=== PATIENT | male | born 1965 | race African-American/Black ===

== ENCOUNTER 2021-05-14 10:37 | Outpatient (REF) | payer OTHER, SELFPAY ==
[2021-05-14 10:41] LABS: MANUAL DIFF FLAG NO
[2021-05-14 10:52] LABS: Basophils Percent Auto 0.5 % (0-2); Eosinophils Absolute Auto 0.1 X10*3/uL (0.0-0.4); Eosinophils Percent Auto 1.1 % (0-4); Hematocrit 43.7 % (42-52); Hemoglobin 14.3 g/dl (14.0-18.0); Imm Gran Abs Auto 0.01 X10*3/uL (0.00-0.03); Imm Gran Pct Auto 0.2 % (0.0-0.4); Lymphocytes Absolute Auto 2.9 X10*3/uL (1.2-4.9); Lymphocytes Percent Auto 51.6 % (20-40); Mean Corpuscular HGB Conc 32.7 g/dl (31.0-36.0); Mean Corpuscular Hemoglobin 28.3 pg (27.0-33.0); Mean Corpuscular Volume 86.4 fL (80-98); Mean Platelet Volume 10.5 fL (9.4-12.4); Monocytes Absolute Auto 0.4 X10*3/uL (0.1-1.2); Monocytes Percent Auto 6.5 % (2-11); Neutrophils Absolute Auto 2.3 X10*3/uL (2.0-8.3); Neutrophils Percent Auto 40.1 % (45-73); Platelet Count 241 X10*3/uL (160-400); Red Blood Count 5.06 X10*6/uL (4.60-5.80); Red Cell Distribution Width 13.7 % (11.0-16.0); White Blood Count 5.7 X10*3/uL (4.8-10.8)
[2021-05-14 11:04] LABS: Estimated Average Glucose 117 mg/dL; Glucose Urine UA NEG (NEG); Hemoglobin A1c % 5.7 %; Leukocyte Esterase Urine NEG (NEG); Nitrite Urine NEG (NEG); Specific Gravity - Urine >= 1.030 (1.005-1.025); Urine Blood NEG (NEG); Urine Ketones NEG (NEG); Urine Protein NEG (NEG-TRACE)
[2021-05-14 11:07] LABS: Alanine Aminotransferase 25 U/L (0-40); Albumin Level 3.9 g/dL (3.5-5.0); Alkaline Phosphatase 76 U/L (39-117); Anion Gap 14 (12-20); Aspartate Amino Transferase 16 U/L (5-37); Bilirubin Total 0.2 mg/dL (0.0-1.0); Blood Urea Nitrogen 18 mg/dL (9-16); Carbon Dioxide 28 mmol/L (22-29); Chloride 108 mmol/L (96-108); Cholesterol 145 mg/dL; Estimated Glomerular Filt Rate 60; Glucose Fasting 102 mg/dL (60-99); HDL Cholesterol 48 mg/dL; LDL Cholesterol Calculated 80 mg/dl; Potassium 3.9 mmol/L (3.3-5.1); Sodium 146 mmol/L (135-145); Total Protein 6.9 g/dL (6.5-8.0); Triglycerides 88 mg/dL
[2021-05-14 11:08] LABS: Appearance Urine CLEAR; Color Urine YELLOW
[2021-05-14 11:24] LABS: TSH reflex Free T4 1.89 uIU/mL (0.32-4.0)
[2021-05-14 11:31] LABS: PSA,Total (Free>4and<10) 1.81 ng/mL (0.00-4.00)
[2021-05-14 11:32] LABS: Creatinine Urine 222.01 mg/dL; Microalbum/Creatinine Ratio Ur 2.7 ug/mg cr
== END 2021-05-14 10:38 | disposition home or self-care (01) ==
LOC: HO.LNP 10:37
PROVIDERS: Visit Provider Internal Medicine
DX: Z00.00 Encounter for general adult medical examination without abnormal findings (principal); I10 Essential (primary) hypertension; E04.1 Nontoxic single thyroid nodule; E11.9 Type 2 diabetes mellitus without complications; D72.820 Lymphocytosis (symptomatic); Z12.5 Encounter for screening for malignant neoplasm of prostate
CPT/HCPCS: 80053; 80061; 81003; 82043; 83036; 84153; 84443; 85025

== ENCOUNTER 2021-05-29 08:14 | Outpatient (REF) | payer OTHER, SELFPAY ==
--- NOTE | ~2021-05-29 | US_ITS ---
EXAMINATION: US THYROID CLINICAL INFORMATION: Thyroid nodules. COMPARISON: Ultrasound-guided thyroid biopsy 12/06/2019. Thyroid ultrasound 11/01/2019 and 12/23/2013. TECHNIQUE: Linear transducer grayscale and color Doppler examination with attention to the region of the thyroid. FINDINGS: SIZE: Measurements of the thyroid lobes and nodules are given in sagittal, anteroposterior and transverse dimensions respectively. Right Thyroid Lobe: 5.9 x 1.9 x 1.7 cm, volume 10.0 mL. Previously 5.7 x 2.1 x 2.0 cm, volume 12.9 mL. Parenchyma: The gland echotexture is heterogeneous. Thyroid vascularity is increased. Left Thyroid Lobe: 5.5 x 2.7 x 2.2 cm, volume 17.0 mL. Previously 5.6 x 2.0 x 1.8 cm, volume 10.7 mL. Parenchyma: The gland echotexture is heterogeneous. Thyroid vascularity is increased. Isthmus: 0.6 cm in maximum AP dimension. Previously 0.5 cm. Estimated total number of nodules greater than or equal to 1 cm: 5. Welder Helper nodules are described as follows: 1. Location: Right mid pole. Size: 2.8 x 1.4 x 2.3 cm, volume 4.7 mL. Previously: 2.5 x 0.9 x 2.1 cm, volume 2.5 mL. Nodule characteristics: Composition: Solid/almost completely solid (2). Echogenicity: Hypoechoic (2). Shape: Not taller than wide (0). Margins: Smooth (0). Echogenic Foci: Macrocalcifications (1). Punctate echogenic foci (3). ACR TI-RADS total points: 8 Previous: Not applicable ACR TI-RADS category: 5 Previous: Not applicable Significant change in size (>/= 20% in 2 dimensions and minimal increase of 2 mm or 50% or greater increase in volume): Yes Change in features: No Change in ACR TI-RADS risk category: Not applicable 2. Location: Right mid pole. Size: 1.2 x 0.6 x 1.1 cm, volume 0.44 mL. Previously: 1.2 x 0.8 x 1.0 cm, volume 0.46 mL. Nodule characteristics: Composition: Solid/almost completely solid (2). Echogenicity: Hypoechoic (2). Shape: Not taller than wide (0). Margins: Smooth (0). Echogenic Foci: None (0). ACR TI-RADS total points: 4 Previous: Not applicable ACR TI-RADS category: 4 Previous: Not applicable Significant change in size (>/= 20% in 2 dimensions and minimal increase of 2 mm or 50% or greater increase in volume): Change in features: Change in ACR TI-RADS risk category: Not applicable 3. Location: Left upper pole. Size: 1.1 x 0.9 x 1.2 cm, volume 0.62 mL. Previously: 1.1 x 0.8 x 0.6 cm, volume 0.31 mL. Nodule characteristics: Composition: Solid/almost completely solid (2). Echogenicity: Hypoechoic (2). Shape: Not taller than wide (0). Margins: Smooth (0). Echogenic Foci: None (0). ACR TI-RADS total points: 4 Previous: Not applicable ACR TI-RADS category: 4 Previous: Not applicable Significant change in size (>/= 20% in 2 dimensions and minimal increase of 2 mm or 50% or greater increase in volume): Change in features: Change in ACR TI-RADS risk category: Not applicable 4. Location: Left mid pole. Size: 2.0 x 1.4 x 1.4 cm, volume 2.0 mL. Previously: 1.1 x 1.1 x 0.8 cm, volume 0.52 mL. Nodule characteristics: Composition: Cystic(0). ACR TI-RADS total points: 0 Previous: Not applicable ACR TI-RADS category: 1 Previous: Not applicable Significant change in size (>/= 20% in 2 dimensions and minimal increase of 2 mm or 50% or greater increase in volume): Yes Change in features: No Change in ACR TI-RADS risk category: Not applicable 5. Location: Left lower pole. Size: 1.0 x 0.3 x 0.5 cm, volume 0.08 mL. Previously: 0.6 x 0.5 x 0.7 cm, volume 0.11 mL. Nodule characteristics: Composition: Spongiform (0). ACR TI-RADS total points: 0 Previous: Not applicable ACR TI-RADS category: 1 Previous: Not applicable Significant change in size (>/= 20% in 2 dimensions and minimal increase of 2 mm or 50% or greater increase in volume): No Change in features: No Change in ACR TI-RADS risk category: Not applicable NODES: No lymphadenopathy is seen in the tissue surrounding the thyroid gland. US/US thyroid IMPRESSION: Increase in size of mid right lobe nodule measuring 2.8 cm in maximum dimension which had a nondiagnostic biopsy on December 06, 2019. It falls in the TI-RADS 5 category with greater than 7 points. Recommend repeat attempt at biopsy. Consideration of having a zipper lining folder present to ensure adequate sampling. ACR TI-RADS RECOMMENDATION REFERENCE: Ultrasound-guided fine-needle aspiration, followup ultrasound, no further follow up. * TR1 (0 point) and TR 2 (2 points): No FNA or follow up * TR3 (3 points): FNA if more than or equal to 2.5 cm in maximum dimension, followup ultrasound in 1, 3 and 5 years if 1.5 to 2.4 cm in maximum dimension. * TR4 (4-6 points): FNA if more than or equal to 1.5 cm in maximum dimension, followup ultrasound in 1, 2, 3 and 5 years if 1 to 1.4 cm in maximum dimension. * TR5 (more than or equal to 7 points): FNA if more than or equal to 1 cm in maximum dimension, followup ultrasound every year for 5 years if 0.5 to 0.9 cm in maximum dimension. * TR3, TR4 or TR5 nodules that are below the size threshold for follow up receive no follow up.
== END 2021-05-29 08:15 | disposition home or self-care (01) ==
LOC: HO.HMGCX 08:14
PROVIDERS: PCP Internal Medicine; Visit Provider Internal Medicine
DX: E04.1 Nontoxic single thyroid nodule (principal)
CPT/HCPCS: 76536

== ENCOUNTER → 2021-12-11 15:35 | Outpatient (BNVA) | payer OTHER, SELFPAY | PROVIDERS: PCP Internal Medicine; Visit Provider Surgery | DX: L72.11 Pilar cyst (principal) | CPT/HCPCS: 99202 ==

== ENCOUNTER 2022-01-10 07:38 | Outpatient (REF) | payer OTHER, SELFPAY ==
[2022-01-10 07:51] VITALS: BP 139/77; PULSE 72; RESP 16; TEMP 36.4; O2SAT 97; BMI 38.0
--- NOTE | 2022-01-10 08:26 | P.OP_ITS ---
Operative Note Operative Note Date of Service: 01/10/22 Narrative: Preoperative diagnosis: Pilar cyst posterior scalp Postoperative diagnosis: Same Procedure: Excision of Pilar cyst posterior scalp Surgeon: Ezio Zaragoza MD Registered Client Associate: None Anesthesia: Local Indications for procedure: 56-year-old male patient with an enlarging Pilar cyst in the posterior scalp measuring 2 cm in diameter. Operative findings: 2 cm Pilar cyst posterior scalp Specimen: Pilar cyst Estimated blood loss: 10 mL Complications: None Procedure details: Patient was brought to the minor surgery suite and placed in a prone position. Site of surgery was confirmed by the patient in the posterior scalp. After assuring informed consent skin was prepped with Betadine and draped in a sterile fashion. Local anesthesia consisting of 1% lidocaine was infiltrated circumferentially around the lesion. Elliptical incision oriented transversely was then created around the cyst. The incision was carried out through subcutaneous tissue. Electrocautery was used to assist with hemostasis. Dissection was continued around the cyst wall in the lesion excised. Skin was then closed using interrupted 4-0 nylon sutures. Dressings included 2 x 2 gauze and Tegaderm. The patient tolerated the procedure well. He was discharged to home in stable condition.
== END 2022-01-10 07:39 | disposition home or self-care (01) ==
LOC: HO.MS 07:38
PROVIDERS: PCP Internal Medicine; Visit Provider Surgery
PROC: (CPT 11422; principal; 2022-01-10 08:00)
DX: L72.11 Pilar cyst (principal)
CPT/HCPCS: 11422; 88304; 88305

== ENCOUNTER → 2022-01-17 08:34 | Outpatient (BNVA) | payer OTHER, SELFPAY | PROVIDERS: PCP Internal Medicine; Referring Provider Internal Medicine; Visit Provider Surgery | DX: Z13.89 Encounter for screening for other disorder (principal) ==

== ENCOUNTER 2022-05-23 10:43 | Outpatient (REF) | payer OTHER, SELFPAY ==
[2022-05-23 10:47] LABS: MANUAL DIFF FLAG NO
[2022-05-23 11:09] LABS: Basophils Percent Auto 0.6 % (0-2); Eosinophils Absolute Auto 0.1 X10*3/uL (0.0-0.4); Eosinophils Percent Auto 1.2 % (0-4); Hematocrit 42.8 % (42.0-52.0); Hemoglobin 14.3 g/dl (14.0-18.0); Imm Gran Abs Auto 0.01 X10*3/uL (0.00-0.03); Imm Gran Pct Auto 0.2 % (0.0-0.4); Lymphocytes Absolute Auto 2.4 X10*3/uL (1.2-4.9); Mean Corpuscular HGB Conc 33.4 g/dl (31.0-36.0); Mean Corpuscular Volume 83.8 fL (80.0-98.0); Mean Platelet Volume 10.9 fL (9.4-12.4); Monocytes Absolute Auto 0.4 X10*3/uL (0.1-1.2); Monocytes Percent Auto 8.6 % (2-11); Neutrophils Absolute Auto 2.1 x10*3/uL (2.0-8.3); Neutrophils Percent Auto 41.4 % (45-73); Platelet Count 240 X10*3/uL (160-400); Red Blood Count 5.11 X10*6/uL (4.60-5.80); Red Cell Distribution Width 13.4 % (11.0-16.0)
[2022-05-23 11:17] LABS: Estimated Average Glucose 111 mg/dL; Hemoglobin A1c % 5.5 %
[2022-05-23 11:25] LABS: Alanine Aminotransferase 26 U/L (0-40); Albumin Level 3.9 g/dL (3.5-5.0); Alkaline Phosphatase 85 U/L (39-117); Anion Gap 15 (12-20); Aspartate Amino Transferase 21 U/L (5-37); Bilirubin Total 0.5 mg/dL (0.0-1.0); Blood Urea Nitrogen 11 mg/dL (9-16); Calcium 8.9 mg/dL (8.4-10.2); Carbon Dioxide 28 mmol/L (22-29); Chloride 105 mmol/L (96-108); Cholesterol 140 mg/dL; Estimated Glomerular Filt Rate > 60; Glucose Fasting 90 mg/dL (60-99); HDL Cholesterol 54 mg/dL; LDL Cholesterol Calculated 74 mg/dl; Potassium 3.6 mmol/L (3.3-5.1); Sodium 144 mmol/L (135-145); Triglycerides 64 mg/dL
[2022-05-23 11:34] LABS: Appearance Urine Clear; Color Urine Yellow; Glucose Urine UA Negative (Negative); Leukocyte Esterase Urine Negative (Negative); Nitrite Urine Negative (Negative); Urine Blood Negative (Negative); Urine Ketones Trace mg/dL (Negative); Urine Protein Negative (Neg-Trace)
[2022-05-23 11:39] LABS: PSA,Total (Free>4and<10) 1.55 ng/mL (0.00-4.00); TSH reflex Free T4 1.13 uIU/mL (0.32-4.0)
[2022-05-23 11:42] LABS: Bacteria Urine None Seen (None Seen); Hyaline Casts Urine 0-2 /LPF (0-2); RBC Urine 0-2 /HPF (0-2); Squamous Epithelial Cell Urine 0-2 /HPF (0-2); WBC Urine 0-5 /HPF (0-5)
[2022-05-23 11:47] LABS: Microalbum/Creatinine Ratio Ur 3.7 ug/mg cr
== END 2022-05-23 10:44 | disposition home or self-care (01) ==
LOC: HO.LNP 10:43
PROVIDERS: Visit Provider Internal Medicine
DX: Z00.00 Encounter for general adult medical examination without abnormal findings (principal); I10 Essential (primary) hypertension; E04.1 Nontoxic single thyroid nodule; E11.9 Type 2 diabetes mellitus without complications; D72.820 Lymphocytosis (symptomatic); Z12.5 Encounter for screening for malignant neoplasm of prostate
CPT/HCPCS: 80053; 80061; 81001; 82043; 83036; 84153; 84443; 85025

== ENCOUNTER → 2022-12-26 14:33 | Outpatient (BNVA) | payer OTHER, SELFPAY | PROVIDERS: PCP Internal Medicine; Visit Provider Surgery | DX: Z13.89 Encounter for screening for other disorder (principal) ==

== ENCOUNTER 2023-01-16 12:31 | Outpatient (REF) | payer OTHER, SELFPAY ==
[2023-01-16 12:41] VITALS: BP 174/83; PULSE 70; RESP 16; TEMP 36.1; O2SAT 97; BMI 38.5
[2023-01-16 13:27] VITALS: BP 163/77; PULSE 62; RESP 16; O2SAT 96
--- NOTE | 2023-01-16 13:37 | P.OP_ITS ---
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 Operative findings: Pilar cyst completely excised posterior scalp Specimen: Pilar cyst posterior scalp Estimated blood loss: 5 mL Complications: None Procedure details: Patient was brought to the minor surgery suite placed in a prone position. The site of surgery was confirmed by the patient in the posterior scalp. After assuring informed consent the skin was prepped with Betadine and draped in a sterile fashion. Elliptical incision to include the previous incision was created with a 15 blade. This was then continued into the subcutaneous tissue and around the cyst wall. Combination of sharp dissection and blunt dissection was used to dissect the cyst from the surrounding subcutaneous tissue. There was extensive scar tissue from the previous excision which was incised with the scissors. The specimen was removed and sent to pathology for further examination. Light pressure was held to maintain hemostasis. Dermis was then reapproximated using interrupted 3-0 Polysorb sutures. Skin was then closed using interrupted 3-0 Prolene sutures. Bacitracin and a sterile bandage was then applied. The patient tolerated the procedure well. He was discharged to home in stable condition.
== END 2023-01-16 12:32 | disposition home or self-care (01) ==
LOC: HO.MS 12:31
PROVIDERS: PCP Internal Medicine; Visit Provider Surgery
PROC: (CPT 11422; principal; 2023-01-16 13:00)
DX: L72.11 Pilar cyst (principal)
CPT/HCPCS: 11422; 88304

== ENCOUNTER → 2023-01-24 11:29 | Outpatient (BNVA) | payer OTHER, SELFPAY | PROVIDERS: PCP Internal Medicine; Visit Provider Surgery | DX: Z13.89 Encounter for screening for other disorder (principal) ==

== ENCOUNTER 2023-06-05 10:56 | Outpatient (REF) | payer OTHER, SELFPAY ==
[2023-06-05 11:04] LABS: MANUAL DIFF FLAG NO
[2023-06-05 11:20] LABS: Basophils Percent Auto 0.7 % (0-2); Eosinophils Absolute Auto 0.1 X10*3/uL (0.0-0.4); Hematocrit 43.1 % (42.0-52.0); Hemoglobin 13.9 g/dl (14.0-18.0); Imm Gran Abs Auto 0.01 X10*3/uL (0.00-0.03); Imm Gran Pct Auto 0.2 % (0.0-0.4); Lymphocytes Absolute Auto 2.7 X10*3/uL (1.2-4.9); Lymphocytes Percent Auto 45.7 % (20-40); Mean Corpuscular HGB Conc 32.3 g/dl (31.0-36.0); Mean Corpuscular Hemoglobin 27.9 pg (27.0-33.0); Mean Corpuscular Volume 86.4 fL (80.0-98.0); Mean Platelet Volume 11.3 fL (9.4-12.4); Monocytes Absolute Auto 0.5 X10*3/uL (0.1-1.2); Monocytes Percent Auto 9.3 % (2-11); Neutrophils Absolute Auto 2.5 x10*3/uL (2.0-8.3); Neutrophils Percent Auto 43.1 % (45-73); Platelet Count 224 X10*3/uL (160-400); Red Blood Count 4.99 X10*6/uL (4.60-5.80); Red Cell Distribution Width 13.9 % (11.0-16.0); White Blood Count 5.8 X10*3/uL (4.8-10.8)
[2023-06-05 11:21] LABS: Appearance Urine Clear; Color Urine Yellow; Glucose Urine UA Negative (Negative); Leukocyte Esterase Urine Negative (Negative); Nitrite Urine Negative (Negative); PH 6.5 (5.0-9.0); Urine Blood Negative (Negative); Urine Ketones Negative (Negative); Urine Protein Negative (Neg-Trace)
[2023-06-05 11:27] LABS: Bacteria Urine None Seen (None Seen); Hyaline Casts Urine 0-2 /LPF (0-2); RBC Urine 0-2 /HPF (0-2); Squamous Epithelial Cell Urine 0-2 /HPF (0-2); WBC Urine 0-5 /HPF (0-5)
[2023-06-05 11:29] LABS: Alanine Aminotransferase 29 U/L (0-40); Alkaline Phosphatase 86 U/L (39-117); Anion Gap 15 (12-20); Aspartate Amino Transferase 23 U/L (5-37); Bilirubin Total 0.3 mg/dL (0.0-1.0); Blood Urea Nitrogen 18 mg/dL (9-16); Calcium 9.6 mg/dL (8.4-10.2); Carbon Dioxide 26 mmol/L (22-29); Chloride 112 mmol/L (96-108); Cholesterol 150 mg/dL (<200); Estimated Glomerular Filt Rate > 60; Glucose Fasting 102 mg/dL (60-99); HDL Cholesterol 59 mg/dL (>40); LDL Cholesterol Calculated 75 mg/dL (<100); Sodium 149 mmol/L (135-145); Total Protein 7.5 g/dL (6.5-8.0); Triglycerides 83 mg/dL (<150)
[2023-06-05 11:48] LABS: PSA,Total (Free>4and<10) 1.91 ng/mL (0.00-4.00)
[2023-06-05 11:58] LABS: Estimated Average Glucose 111 mg/dL; Hemoglobin A1c % 5.5 % (<6.0)
[2023-06-05 12:19] LABS: Creatinine Urine 125.63 mg/dL; Microalbumin Urine < 5.0 mg/L
== END 2023-06-05 10:57 | disposition home or self-care (01) ==
LOC: HO.LNP 10:56
PROVIDERS: Visit Provider Internal Medicine
DX: Z00.00 Encounter for general adult medical examination without abnormal findings (principal); I10 Essential (primary) hypertension; E11.9 Type 2 diabetes mellitus without complications; D72.820 Lymphocytosis (symptomatic); Z12.5 Encounter for screening for malignant neoplasm of prostate
CPT/HCPCS: 80053; 80061; 81001; 82043; 82570; 83036; 84153; 85025

== ENCOUNTER 2024-06-07 11:06 | Outpatient (REF) | payer OTHER, SELFPAY ==
[2024-06-07 11:09] LABS: MANUAL DIFF FLAG NO
[2024-06-07 11:18] LABS: Basophils Absolute Auto 0.1 X10*3/uL (0.0-0.2); Basophils Percent Auto 0.9 % (0-2); Eosinophils Absolute Auto 0.1 X10*3/uL (0.0-0.4); Eosinophils Percent Auto 1.7 % (0-4); Hematocrit 45.2 % (42.0-52.0); Hemoglobin 14.8 g/dl (14.0-18.0); Imm Gran Abs Auto 0.01 X10*3/uL (0.00-0.03); Imm Gran Pct Auto 0.2 % (0.0-0.4); Lymphocytes Absolute Auto 2.5 X10*3/uL (1.2-4.9); Lymphocytes Percent Auto 46.6 % (20-40); Mean Corpuscular HGB Conc 32.7 g/dl (31.0-36.0); Mean Corpuscular Hemoglobin 28.5 pg (27.0-33.0); Mean Corpuscular Volume 86.9 fL (80.0-98.0); Monocytes Absolute Auto 0.4 X10*3/uL (0.1-1.2); Monocytes Percent Auto 7.9 % (2-11); Neutrophils Absolute Auto 2.3 x10*3/uL (2.0-8.3); Neutrophils Percent Auto 42.7 % (45-73); Platelet Count 224 X10*3/uL (160-400); Red Cell Distribution Width 13.4 % (11.0-16.0); White Blood Count 5.5 X10*3/uL (4.8-10.8)
[2024-06-07 11:24] LABS: Appearance Urine Clear; Color Urine Yellow; Glucose Urine UA Negative (Negative); Leukocyte Esterase Urine Negative (Negative); Nitrite Urine Negative (Negative); Urine Blood Negative (Negative); Urine Ketones Negative (Negative); Urine Protein Negative (Neg-Trace)
[2024-06-07 11:28] LABS: Bacteria Urine None Seen (None Seen); Hyaline Casts Urine 0-2 /LPF (0-2); RBC Urine 0-2 /HPF (0-2); Squamous Epithelial Cell Urine 0-2 /HPF (0-2); WBC Urine 0-5 /HPF (0-5)
[2024-06-07 11:39] LABS: Estimated Average Glucose 114 mg/dL; Hemoglobin A1c % 5.6 % (<6.0)
[2024-06-07 11:59] LABS: PSA,Total (Free>4and<10) 2.65 ng/mL (0.00-4.00)
[2024-06-07 12:05] LABS: Alanine Aminotransferase 22 U/L (0-40); Albumin Level 3.9 g/dL (3.5-5.0); Alkaline Phosphatase 90 U/L (39-117); Anion Gap 16 (12-20); Aspartate Amino Transferase 19 U/L (5-37); Bilirubin Total 0.3 mg/dL (0.0-1.0); Blood Urea Nitrogen 16 mg/dL (9-16); Calcium 9.2 mg/dL (8.4-10.2); Carbon Dioxide 27 mmol/L (22-29); Chloride 110 mmol/L (96-108); Cholesterol 145 mg/dL (<200); Estimated Glomerular Filt Rate > 60; Glucose Fasting 94 mg/dL (60-99); HDL Cholesterol 51 mg/dL (>40); LDL Cholesterol Calculated 71 mg/dL (<100); Potassium 3.5 mmol/L (3.3-5.1); Sodium 149 mmol/L (135-145); Total Protein 7.1 g/dL (6.5-8.0); Triglycerides 115 mg/dL (<150)
[2024-06-07 12:19] LABS: Creatinine Urine 176.62 mg/dL
== END 2024-06-07 11:07 | disposition home or self-care (01) ==
LOC: HO.LNP 11:06
PROVIDERS: Visit Provider Internal Medicine
DX: Z00.00 Encounter for general adult medical examination without abnormal findings (principal); I10 Essential (primary) hypertension; E11.9 Type 2 diabetes mellitus without complications; D72.820 Lymphocytosis (symptomatic); Z12.5 Encounter for screening for malignant neoplasm of prostate
CPT/HCPCS: 80053; 80061; 81001; 82043; 82570; 83036; 84153; 85025

== ENCOUNTER 2024-12-13 15:21 | Outpatient (REF) | payer OTHER, SELFPAY | END 2024-12-13 15:22 | disposition home or self-care (01) | LOC: HO.LNP 15:21 | PROVIDERS: Visit Provider Internal Medicine | DX: R97.20 Elevated prostate specific antigen [PSA] (principal); Z12.5 Encounter for screening for malignant neoplasm of prostate | CPT/HCPCS: 84153 ==

== ENCOUNTER 2025-06-27 08:00 | Outpatient (REF) | payer OTHER, SELFPAY ==
--- OUTSIDE RECORDS SUMMARY | 2024-06-07 03:00 | XMS_ITS ---
Author Organization Librado Neri MD Address [address] [place] [phone] Care Team Providers Care Last Pattern Grader Name Role Phone Librado Neri Primary Care Provider [phone] Results Component Value Reference Range Notes Complete Blood Count Auto Di ff Reviewed date:06/08/2024 08:50:13 AM Interpretation: Performing Lab:[facility], [address] [place] [phone] Notes/Report: White Blood Count 5.5 4.8-10.8 X10*3/uL Red Blood Count 5.20 4.60-5.80 X10*6/uL Hemoglobin 14.8 14.0-18.0 g/dl Hematocrit 45.2 42.0-52.0 % Mean Corpuscular Volume 86.9 80.0-98.0 fL Mean Corpuscular Hemoglobin 28.5 27.0-33.0 pg Mean Corpuscular HGB Conc 32.7 31.0-36.0 g/dl Red Cell Distribution Width 13.4 11.0-16.0 % Platelet Count 224 160-400 X10*3/uL Mean Platelet Volume 11.0 9.4-12.4 fL Neutrophils Percent Auto 42.7 45-73 % Imm Gran Pct Auto 0.2 0.0-0.4 % Lymphocytes Percent Auto 46.6 20-40 % Monocytes Percent Auto 7.9 2-11 % Eosinophils Percent Auto 1.7 0-4 % Basophils Percent Auto 0.9 0-2 % NRBC Pct Auto 0.0 0.0-0.2 /100WBC Neutrophils Absolute Auto 2.3 2.0-8.3 x10*3/u L Imm Gran Abs Auto 0.01 0.00-0.03 X10*3/uL Lymphocytes Absolute Auto 2.5 1.2-4.9 X10*3/u L Monocytes Absolute Auto 0.4 0.1-1.2 X10*3/uL Eosinophils Absolute Auto 0.1 0.0-0.4 X10*3/u L Basophils Absolute Auto 0.1 0.0-0.2 X10*3/uL NRBC Abs Auto 0.000 0.0-0.012 X10*3/uL Comprehensive Henderson. Panel Fa st Reviewed date:06/08/2024 08:49:49 AM Interpretation: Performing Lab:[facility], [address] [place] [phone] Notes/Report: Sodium 149 135-145 mmol/L Potassium 3.5 3.3-5.1 mmol/L Chloride 110 96-108 mmol/L Carbon Dioxide 27 22-29 mmol/L Anion Gap 16 12-20 Blood Urea Nitrogen 16 9-16 mg/dL Creatinine 1.11 0.5-1.4 mg/dL Estimated Glomerular Filt Rate > 60 NOTE: For -[place] individuals, multiply the result by 1.210. Chronic Kidney Disease: Estimated GFR < 60 mL/min/1.73m2 Severe Kidney Disease: Estimated GFR < 15 mL/min/1.73m2 Glucose Fasting 94 60-99 mg/dL Calcium 9.2 8.4-10.2 mg/dL Bilirubin Total 0.3 0.0-1.0 mg/dL Aspartate Amino Transferase 19 5-37 U/L Alanine Aminotransferase 22 0-40 U/L Total Protein 7.1 6.5-8.0 g/dL Albumin Level 3.9 3.5-5.0 g/dL Alkaline Phosphatase 90 39-117 U/L Lipid Panel Reviewed date:06/07/2024 04:06:56 PM Interpretation: Performing Lab:[facility], [address] [place] [phone] Notes/Report: Triglycerides 115 <150 mg/dL Desirable Triglyceride: less than 150 mg/dL Borderline High Triglyceride 150-199 mg/dL High Triglyceride: 200-499 mg/dL Very High Triglyceride: greater than or equal to 5OO mg/dL Cholesterol 145 <200 mg/dL Desirable Cholesterol: less than 200 mg/dL Borderline High Cholesterol: 200-239 mg/dL High Cholesterol: greater than 239 mg/dL LDL Cholesterol Calculated 71 <100 mg/dL Desirable LDL: less than 100 mg/dL Near Optimal/Above Optimal LDL: 110-129 mg/dL Borderline High LDL: 130-159 mg/dL High LDL: 160-189 mg/dL Very High LDL: greater than or equal to 190 mg/dL HDL Cholesterol 51 >40 mg/dL Desirable HDL: greater than 40 mg/dL Note: This HDL assay may give artificially low results in patients with liver disease. PSA,Total (Free>4and<10) Reviewed date:12/14/2024 10:43:22 AM Interpretation:repeat PSA 12-13-24 in 6 mos Performing Lab:[facility], [address] [place] [phone] Notes/Report: PSA,Total (Free>4and<10) 2.65 0.00-4.00 ng/mL A Free PSA was not performed: The percentage of Free PSA can be used to enhance the differentiation of prostate cancer from benign prostatic disease in subjects whose PSA levels are between 4.0 and 10.0 ng/mL. For subjects whose PSA levels are below 4.0 or above 10.0 ng/mL, the risk of prostate cancer is determined on the basis of the PSA alone. Therefore the % Free PSA is recommended only for those subjects whose PSA levels are between 4.0 and 10.0 ng/mL. PSA methodology: Robertson Alinity i Chemiluminescent Microparticle Immunoassay (CMIA) Microalbumin, Random Reviewed date:06/07/2024 04:08:15 PM Interpretation: Performing Lab:[facility], [address] [place] [phone] Notes/Report: Creatinine Urine 176.62 Microalbumin Urine 9.0 Microalbum/Creatinine Ratio Ur 5.0 <30 ug/mg cr Albumin/Creatinine Ratio Reference Ranges: Normal: < 30 ug/mg creatinine Microalbuminuria: 30 - 300 ug/mg creatinine Clinical Albuminuria: > 300 ug/mg creatinine Hemoglobin A1c Reviewed date:06/07/2024 04:07:26 PM Interpretation: Performing Lab:[facility], [address] [place] [phone] Notes/Report: Hemoglobin A1c % 5.6 <6.0 % Hemoglobin A1C Reference Range Adults: 4.8 - 6.0 % Non diabetic: < 6.0 % Goal: < 7.0 % Additional Action Suggested: > 8.0 % Note: Hemoglobin A1c results are invalid for patients with abnormal amounts of HbF. Blood transfusions may impact the HbA1c concentration in the patient sample. Estimated Average Glucose 114 eAG = Estimated average glucose which is %A1C expressed as average glucose, using the formula of the [id number] Average Glucose study (ADAG), Diabetes Care, Vol.31,#8, Apr. 2007 UA ClnCatch+Micro w/rflx Cul t Reviewed date:06/08/2024 08:48:07 AM Interpretation: Performing Lab:[facility], [address] [place] [phone] Notes/Report: Urine, Clean Catch Color Urine Yellow Appearance Urine Clear PH 6.0 5.0-9.0 Glucose Urine UA Negative Negative mg/dL Urine Blood Negative Negative Specific [place] - Urine 1.020 1.005-1.025 Urine Protein Negative Neg-Trace mg/dL Urine Ketones Negative Negative mg/dL Nitrite Urine Negative Negative Leukocyte Esterase Urine Negative Negative RBC Urine 0-2 0-2 /HPF WBC Urine 0-5 0-5 /HPF Squamous Epithelial Cell Urine 0-2 0-2 /HPF Bacteria Urine None Seen None Seen Hyaline Casts Urine 0-2 0-2 /LPF REASON FOR VISIT FASTING LABS Immunizations Vaccine Route Administration Date Status Comme nts Fluarix Quadrivalent - 150 IM Intramuscular 06/07/2024 Adm inistered Encounters Encounter Location Date Provider Diagnosis Librado Neri MD [address] [place] [address] Drive [address] [place], [place] [phone] 06/07/2024 Librado Neri Annual physical exam Z00.00 ; Encounter for immunization Z23 ; Essential hypertension I10 ; Type 2 diabetes mellitus without complications E11.9 and Lymphocytosis D72.820 Assessments Encounter Date Diagnosis (ICD Code) Assessment Notes Treatment Notes Treatment Clinical Notes Section Notes 06/07/2024 Annual physical exam (ICD-10 - Z00.00) 06/07/2024 Encounter for immunization (ICD-10 - Z23) 06/07/2024 Essential hypertension (ICD-10 - I10) 06/07/2024 Type 2 diabetes mellitus without complications (ICD-10 - E11.9) 06/07/2024 Lymphocytosis (ICD-10 - D72.820) Plan Of Treatment Next Appt Details Provider Name:Librado Arreola ier, 07/04/2025 11:00:00 AM, [address] [facility], [address], [place], [place], [phone], Progress Notes * Lio GRIMALDO RDOB:1965 (60 yo M)Acc No.[id number]:06/07/2024 Progress Note Patient: Lio VASQUEZ Provider: Elpidio Neri MD :1965 A ge:59 Y S ex:Male Date:06/07/2024 Address: [address], [address], [id number] Subjective: * Chief Complaints: * 1 . FASTING LABS. * Medical History: Objective: * Vitals: Assessment: * Assessment: 1. E ncounter for immunization - Z23 (Primary) 2 . A nnual physical exam - Z00.00 3 . E ssential hypertension - I10 4 . T ype 2 diabetes mellitus without complications - E11.9 5 . L ymphocytosis - D72.820 Plan: * Treatment: ?LAB: Microalbumin, Random (Collection Date & Time - 06/07/2024 07:00 AM) ?LAB: Hemoglobin A1c (Collection Date & Time - 06/07/2024 07:00 AM) ?LAB: UA ClnCatch+Micro w/rflx Cult (Collection Date & Time - 06/07/2024 07:00 AM)2.?Essential hypertension?LAB: Complete Blood Count Auto Diff (Collection Date & Time - 06/07/2024 07:00 AM) ?LAB: Comprehensive [place]. Panel Fast (Collection Date & Time - 06/07/2024 07:00 AM) ?LAB: Lipid Panel (Collection Date & Time - 06/07/2024 07:00 AM) ?LAB: PSA,Total (Free>4and<10) (Collection Date & Time - 06/07/2024 07:00 AM)* Elvis Nerin P 06/07/2024 04:07:51 PM EDT > repeat psa in 6 mo ?LAB: Microalbumin, Random (Collection Date & Time - 06/07/2024 07:00 AM) ?LAB: Hemoglobin A1c (Collection Date & Time - 06/07/2024 07:00 AM) ?LAB: UA ClnCatch+Micro w/rflx Cult (Collection Date & Time - 06/07/2024 07:00 AM)3.?Type 2 diabetes mellitus without complications?LAB: Complete Blood Count Auto Diff (Collection Date & Time - 06/07/2024 07:00 AM) ?LAB: Comprehensive [place]. Panel Fast (Collection Date & Time - 06/07/2024 07:00 AM) ?LAB: Lipid Panel (Collection Date & Time - 06/07/2024 07:00 AM) ?LAB: PSA,Total (Free>4and<10) (Collection Date & Time - 06/07/2024 07:00 AM)* Elvis Nerin P 06/07/2024 04:07:51 PM EDT > repeat psa in 6 mo ?LAB: Microalbumin, Random (Collection Date & Time - 06/07/2024 07:00 AM) ?LAB: Hemoglobin A1c (Collection Date & Time - 06/07/2024 07:00 AM) ?LAB: UA ClnCatch+Micro w/rflx Cult (Collection Date & Time - 06/07/2024 07:00 AM)4.?Lymphocytosis?LAB: Complete Blood Count Auto Diff (Collection Date & Time - 06/07/2024 07:00 AM) ?LAB: Comprehensive [place]. Panel Fast (Collection Date & Time - 06/07/2024 07:00 AM) ?LAB: Lipid Panel (Collection Date & Time - 06/07/2024 07:00 AM) ?LAB: PSA,Total (Free>4and<10) (Collection Date & Time - 06/07/2024 07:00 AM)* Librado Neri 06/07/2024 04:07:51 PM EDT > repeat psa in 6 mo ?LAB: Microalbumin, Random (Collection Date & Time - 06/07/2024 07:00 AM) ?LAB: Hemoglobin A1c (Collection Date & Time - 06/07/2024 07:00 AM) ?LAB: UA ClnCatch+Micro w/rflx Cult (Collection Date & Time - 06/07/2024 07:00 AM) * Immunizations: Fluarix Quadrivalent - 150 : 0.5 mL (Dose No:1) (Route: Intramuscular) given by Kendal Floyd , Office Staff on Left Deltoid * Procedure Codes: 9 0686 FLU VAC NO PRSV 4 PANKAJ 3 YRS+, [address] IMMUNIZATION ADMIN, 84489 VENIPUNCT, ROUTINE* * Preventive Medicine: Immunizations: I nfluenza H ave you had a flu shot since the most recent May 30? Y es. * * The named appointment provid er may or may not be the originator of this progress note, and it is not deemed complete until electronically signed by the appointment provider. Sign off status: Pending * Provider: Elpidio Neri MD Date: 0 06/07/2024 Generated for Saad romeo/Brittny/Jaditting on: 0 06/27/2025 11:29 AM EDT
--- OUTSIDE RECORDS SUMMARY | 2024-07-02 09:00 | XMS_ITS ---
Author Organization Librado Neri MD Address [address] [place] [phone] Care Team Providers Care Return To Vendor Name Role Phone Librado Neri Primary Care Provider Allergies No Known Allergies REASON FOR VISIT ANNUAL EXAM Medications Medication SIG (Take, Route, Frequency, Duration) Notes Start Date End Date Status amLODIPine Besylate 10 MG TAKE 1 TABLET BY MOUTH EVERY DAY Active Valsartan-hydroCHLOROthiazid e 320-25 MG TAKE 1 TABLET BY MOUTH EVERY DAY FOR 30 DAYS Active hydroCHLOROthiazide 25 MG 1 tablet in th e morning Orally Once a day for 90 days 07/02/2024 Active Social History Tobacco Use: Social History Observation Description Date Details (start date - stop date) Never Smoker NA - NA Tobacco Use/Smoking Question Answer Notes Patient is a nonsmoker Additional Findings: Tobacco Non-User Fo rmer smoker, currently using no form of tobacco Alcohol Screen Question Answer Notes Did you have a drink contain ing alcohol in the past year? Yes How often did you have a dri nk containing alcohol in the past year? 2 to 4 times a month (2 points) How many drinks did you have on a typical day when you were drinking in the past year? 1 or 2 drinks (0 point) How often did you have 6 or more drinks on one occasion in the past year? Never (0 point) Points 2 Interpretation Negative Section Notes: Patient calls himself a dipti e drinker, when he does drink he has 12 beers Patient no longer binge drinks Vital Signs Blood pressure systolic 142 mm Hg 07/02/20 24 Blood pressure diastolic 80 mm Hg 024 Height 71 in 07/02/2024 Weight 256 lbs 07/02/2024 BMI 35.70 kg/m2 07/02/2024 Encounters Encounter Location Date Provider Diagnosis Librado Neri MD [address] [place] [address] [place] [phone] 07/02/2024 Librado Neri Right foot pain M79.671 ; Annual physical exam Z00.00 ; Essential hypertension I10 ; Type 2 diabetes mellitus without complications E11.9 ; Lymphocytosis D72.820 ; Depression screening Z13.31 and Colon cancer screening Z12.11 Assessments Encounter Date Diagnosis (ICD Code) Assessment Notes Treatment Notes Treatment Clinical Notes Section Notes 07/02/2024 Right foot pain (ICD-10 - M79.671) refer to dr levine 07/02/2024 Annual physical exam (ICD-10 - Z00.00) labs reviewed and discussed with patient 07/02/2024 Essential hypertension (ICD-10 - I10) patient verbalized understanding of medication and directions for use 07/02/2024 Type 2 diabetes mellitus without complications (ICD-10 - E11.9) stable, no need for medication at this time 07/02/2024 Lymphocytosis (ICD-10 - D72.820) will continue to monitor 07/02/2024 Depression screening (ICD-10 - Z13.31) negative screen 07/02/2024 Colon cancer screening (ICD-10 - Z12.11) negative guaiac Plan Of Treatment Medication Medication Name Sig Start Date Stop Date Notes amLODIPine Besylate 10 MG TAKE 1 TABLET BY MOUTH EVERY DAY Valsartan-hydroCHLOROthiazid e 320-25 MG TAKE 1 TABLET BY MOUTH EVERY DAY FOR 30 DAYS hydroCHLOROthiazide 25 MG 1 tablet in th e morning Orally Once a day for 90 days 07/02/2024 Treatment Notes Assessment Notes Right foot pain refer to dr levine Annual physical exam labs reviewed and d iscussed with patient Essential hypertension patient verbalize d understanding of medication and directions for use Type 2 diabetes mellitus wit hout complications stable, no need for medication at this time Lymphocytosis will continue to mon itor Depression screening negative screen Colon cancer screening negative guaiac Next Appt Details Follow Up: 3 Months, Reason: bp Provider Name:Librado Arreola ier, 07/04/2025 11:00:00 AM, [address], [address], [place], [place], [phone], Progress Notes * Lio GRIMALDO RDOB:1965 (59 yo M)Acc No.[id number]:07/02/2024 Progress Notes Patient: Lio Dixon Provider: Elpidio Neri MD :1965 A ge:59 Y S ex:Male Date:07/02/2024 Address: [address], [address], [facility] Subjective: * Chief Complaints: * A NNUAL EXAM * HPI: D epression Screening: PHQ-9 L ittle interest or pleasure in doing things N ot at all, F eeling down, depressed, or hopeless N ot at all, T rouble falling or staying asleep, or sleeping too much N ot at all, F eeling tired or having little energy N ot at all, P oor appetite or overeating N ot at all, F eeling bad about yourself or that you are a failure, or have let yourself or your family down N ot at all, T rouble concentrating on things, such as reading the newspaper or watching television N ot at all, M oving or speaking so slowly that other people could have noticed; or the opposite, being so fidgety or restless that you have been moving around a lot more than usual N ot at all, T houghts that you would be better off or of hurting yourself in some way N ot at all, T otal Score 0 . I nterpretation and Intervention D epression Screening Findings N egative, F ollow-Up for Depression : review of PHQ-9 found negative result, no follow-up needed. C ommunication Needs: Communication Needs D oes the patient have a hearing impairment N o, D oes the patient have a vision impairment? Y es, I f yes, what is the vision impairment? C ontact Lenses, D oes the patient have a cognition impairment? N o. S JOSÉ MIGUEL Questions: SDOH Questions I n the past year have you been worried about losing housing? N o, I n the past year have you or any family members you live with been unable to get any of the following when it was really needed? Check all that apply: N one. S ymptom(s): patient is a 59 yo male here for annual visit with review of recent labs and follow up of chronic issues. * ROS: G eneral/Constitutional: Patient denies f atigue , headache. C hange in appetite?denies. C hills d enies. F ever d enies. O phthalmologic: Blurred vision d enies. D ischarge d enies. P ain d enies. E NT: Patient denies d ecreased sense of smell , any loss of taste , sore throat. D ecreased hearing d enies. S ore throat d enies. S wollen glands d enies. E ndocrine: Cold intolerance d enies. E xcessive thirst d enies. H eat intolerance d enies. W eight loss d enies. R espiratory: Cough d enies. S hortness of breath at rest d enies. S hortness of breath with exertion d enies. W heezing d enies. C ardiovascular: Chest pain at rest d enies. C hest pain with exertion?denies. I rregular heartbeat d enies. S hortness of breath d enies. ? G astrointestinal: Abdominal pain d enies. C hange in bowel habits d enies. D iarrhea d enies. N ausea d enies. R ectal bleeding d enies. V omiting d enies . G enitourinary: Blood in urine d enies. D ifficulty urinating d enies. F requent urination d enies. M usculoskeletal: Patient denies m uscle aches. P ainful joints d enies. W eakness d enies. P eripheral Vascular: Patient denies r ed and blue toes. S kin: Dry skin d enies. I tching d enies. D enies?Mole(s), changes in moles, new moles or any lesions of concern. D enies P hotosensitivity. R leida d enies. N eurologic: Dizziness d enies. F ainting d enies. H eadache?denies. * Medical History: * Surgical History: * Hospitalization/Major Diagno stic Procedure: * Family History: F ather: alive 75 yrs, Healthy. M other: alive 74 yrs, diabetes mellitus. 4 brother(s) , 3 sister(s) . 1 son(s) . . Denies mental health/substance abuse family history, Denies mental health/substance abuse family history, No pertinent family medical history, Denies mental health/substance abuse family history 1 sister 42 Covid. * Social History: T obacco Use: T obacco Use/Smoking P lexi is a n onsmoker, A dditional Findings: Tobacco Non-User F ormer smoker, currently using no form of tobacco. D rugs/Alcohol: A lcohol Screen D id you have a drink containing alcohol in the past year? Y es, H ow often did you have a drink containing alcohol in the past year? 2 to 4 times a month (2 points), H ow many drinks did you have on a typical day when you were drinking in the past year? 1 or 2 drinks (0 point), H ow often did you have 6 or more drinks on one occasion in the past year? N ever (0 point), P oints 2 , I nterpretation N egative. M iscellaneous: C affeine: yes, frequency:, 2 cups in the am.. Children: yes. Community involvements: yes, works for [employer]. Exercise: yes, pt walking 3 days a week 2 miles. Housing: renting. Living with: alone. Marital status: . Occupation: works full-time. no Travel outside of the [place]. P lexi calls himself a binge drinker, when he does drink he has 12 beers Patient no longer binge drinks. * Medications: T akingamLODIPine Besylate 10 MG Tablet TAKE 1 TABLET BY MOUTH EVERY DAY Valsartan-hydroCHLOROthiazide 320-25 MG Tablet TAKE 1 TABLET BY MOUTH EVERY DAY FOR 30 DAYS Medication List reviewed and reconciled with the patientTaking amLODIPine Besylate 10 MG Tablet TAKE 1 TABLET BY MOUTH EVERY DAY Taking Valsartan-hydroCHLOROthiazide 320-25 MG Tablet TAKE 1 TABLET BY MOUTH EVERY DAY FOR 30 DAYS Medication List reviewed and reconciled with the patient * Allergies: N .K.D.A.yes[Allergies Verified] Objective: * Vitals: H t: 71, Wt:256, BMI:35.70, BP:142/80, Repeat BP:158/80. * P ast Orders: L ab:Hemoglobin A1c (Order Date - 06/07/2024) (Collection Date - 06/07/2024) Value Reference Range Hemoglobin A1c % 5.6 <6.0 - % Estimated Average Glucose 114 - mg/dL L ab:UA ClnCatch+Micro w/rflx Cult (Order Date - 06/07/2024) (Collection Date - 06/07/2024) Value Reference Range Color Urine Yellow - Appearance Urine Clear - PH 6.0 5.0-9.0 - Glucose Urine UA Negative Negative - mg/dL Urine Blood Negative Negative - Specific [place] - Urine 1.020 1.005-1.025 - Urine Protein Negative Neg-Trace - mg/dL Urine Ketones Negative Negative - mg/dL Nitrite Urine Negative Negative - Leukocyte Esterase Urine Negative Negative - RBC Urine 0-2 0-2 - /HPF WBC Urine 0-5 0-5 - /HPF Squamous Epithelial Cell Urine 0-2 0-2 - /HP F Bacteria Urine None Seen None Seen - Hyaline Casts Urine 0-2 0-2 - /LPF L ab:Complete Blood Count Auto Diff (Order Date - 06/07/2024) (Collection Date - 06/07/2024) Value Reference Range White Blood Count 5.5 4.8-10.8 - X10*3/uL Red Blood Count 5.20 4.60-5.80 - X10*6/uL Hemoglobin 14.8 14.0-18.0 - g/dl Hematocrit 45.2 42.0-52.0 - % Mean Corpuscular Volume 86.9 80.0-98.0 - fL Mean Corpuscular Hemoglobin 28.5 27.0-33.0 - pg Mean Corpuscular HGB Conc 32.7 31.0-36.0 - g/ dl Red Cell Distribution Width 13.4 11.0-16.0 - % Platelet Count 224 160-400 - X10*3/uL Mean Platelet Volume 11.0 9.4-12.4 - fL Neutrophils Percent Auto 42.7 L 45-73 - % Imm Gran Pct Auto 0.2 0.0-0.4 - % Lymphocytes Percent Auto 46.6 H 20-40 - % Monocytes Percent Auto 7.9 2-11 - % Eosinophils Percent Auto 1.7 0-4 - % Basophils Percent Auto 0.9 0-2 - % NRBC Pct Auto 0.0 0.0-0.2 - /100WBC Neutrophils Absolute Auto 2.3 2.0-8.3 - x10* 3/uL Imm Gran Abs Auto 0.01 0.00-0.03 - X10*3/uL Lymphocytes Absolute Auto 2.5 1.2-4.9 - X10* 3/uL Monocytes Absolute Auto 0.4 0.1-1.2 - X10*3/ uL Eosinophils Absolute Auto 0.1 0.0-0.4 - X10* 3/uL Basophils Absolute Auto 0.1 0.0-0.2 - X10*3/ uL NRBC Abs Auto 0.000 0.0-0.012 - X10*3/uL L ab:Comprehensive Wayne. Panel Fast (Order Date - 06/07/2024) (Collection Date - 06/07/2024) Value Reference Range Sodium 149 H 135-145 - mmol/L Bilirubin Total 0.3 0.0-1.0 - mg/dL Aspartate Amino Transferase 19 5-37 - U/L Alanine Aminotransferase 22 0-40 - U/L Total Protein 7.1 6.5-8.0 - g/dL Albumin Level 3.9 3.5-5.0 - g/dL Alkaline Phosphatase 90 39-117 - U/L Potassium 3.5 3.3-5.1 - mmol/L Chloride 110 H 96-108 - mmol/L Carbon Dioxide 27 22-29 - mmol/L Anion Gap 16 12-20 - Blood Urea Nitrogen 16 9-16 - mg/dL Creatinine 1.11 0.5-1.4 - mg/dL Estimated Glomerular Filt Rate > 60 - Glucose Fasting 94 60-99 - mg/dL Calcium 9.2 8.4-10.2 - mg/dL L ab:Lipid Panel (Order Date - 06/07/2024) (Collection Date - 06/07/2024) Value Reference Range Triglycerides 115 <150 - mg/dL Cholesterol 145 <200 - mg/dL LDL Cholesterol Calculated 71 <100 - mg/dL HDL Cholesterol 51 >40 - mg/dL L ab:Microalbumin, Random (Order Date - 06/07/2024) (Collection Date - 06/07/2024) Value Reference Range Creatinine Urine 176.62 - mg/dL Microalbumin Urine 9.0 - mg/L Microalbum Creatinine Ratio Ur 5.0 <30 - ug/ mg cr * Examination: G eneral Examination: GENERAL APPEARANCE: w ell developed, well nourished, in no acute distress. HEAD: n ormocephalic, atraumatic. EYES: p upils equal, round, reactive to light and accommodation, sclera non-icteric. EARS: n ormal. ORAL CAVITY: m ucosa moist. THROAT: c lear. NECK/THYROID: n gissell supple, full range of motion, no cervical lymphadenopathy, no bruits. SKIN: w arm and dry, no suspicious lesions. HEART: r egular rate and rhythm, S1, S2 normal, no murmurs.? LUNGS: c lear to auscultation bilaterally. ABDOMEN: s oft, nontender, nondistended, bowel sounds present, normal, no organomegaly , no masses palpable. RECTAL EXAM: n ormal tone, no external hemorrhoids, no masses palpable, prostate normal, stool guaiac negative. MALE GENITOURINARY: u ncircumcised, testes descended bilaterally, no testicular mass. EXTREMITIES: n o clubbing, cyanosis, or edema. NEUROLOGIC: n onfocal, motor strength normal upper and lower extremities, sensory exam intact. Assessment: * Assessment: 1. A nnual physical exam - Z00.00 (Primary) 2 . R ight foot pain - M79.671 3 . E ssential hypertension - I10 4 . T ype 2 diabetes mellitus without complications - E11.9?5. L ymphocytosis - D72.820 6 . D epression screening - Z13.31 7 . C olon cancer screening - Z12.11 Plan: * Treatment: 2. R ight foot pain Notes: refer to dr levine 3. E ssential hypertension Start hydroCHLOROthiazide Tablet, 25 MG, 1 tablet in the morning, Orally, Once a day, 90 days, 90 Tablet, Refills 3; C ontinue amLODIPine Besylate Tablet, 10 MG, TAKE 1 TABLET BY MOUTH EVERY DAY; Continue Valsartan-hydroCHLOROthiazide Tablet, 320-25 MG, TAKE 1 TABLET BY MOUTH EVERY DAY FOR 30 DAYS. Notes: patient verbalized understanding of medication and directions for use 4. T ype 2 diabetes mellitus without complications Notes: stable, no need for medication at this time 5. L ymphocytosis Notes: will continue to monitor 6. D epression screening Notes: negative screen 7. C olon cancer screening Notes: negative guaiac * Procedure Codes: * Preventive Medicine: Counseling: C are goal follow-up plan: C ounseling for abnormal BMI provided?Yes, A latoya Normal BMI Follow-up G iving encouragement to exercise. Diabetes Care Plan: P atient Lifestyle Goals N eeds to maintain diet control.?Treatment Goals A 1C< 7. B arriers N o specific barriers, doing well. S elf-Managment Plan I ncrease light exercise to 3 times a week for 30 minutes. * Follow Up: 3 Months (Reason: bp) * * Sign off status: Completed true * Provider: Elpidio Neri MD Date: Generated for Saad romeo/Brittny/Jaditting on: 0 06/27/2025 11:28 AM EDT History and Physical Notes * HPI (History of Present Illness) Category Sub-Category Detail Notes Category Not es Symptom(s) patient is a 59 yo male here for annual visit with review of recent labs and follow up of chronic issues. Depression Screening PHQ-9 Little inte rest or pleasure in doing things: Not at all Feeling down, depressed, or hopeless: No t at all Trouble falling or staying asleep, or sl eeping too much: Not at all Feeling tired or having little energy: N ot at all Poor appetite or overeating: Not at all Feeling bad about yourself o r that you are a failure, or have let yourself or your family down: Not at all Trouble concentrating on thi ngs, such as reading the newspaper or watching television: Not at all Moving or speaking so slowly that other people could have noticed; or the opposite, being so fidgety or restless that you have been moving around a lot more than usual: Not at all Thoughts that you would be b krystle off or of hurting yourself in some way: Not at all Total Score: 0 Interpretation and Intervention Depression Tamara olivarez Findings: Negative Follow-Up for Depression: : review of PH Q-9 found negative result, no follow-up needed SDOH Questions SDOH Questions In the past year have you been worried about losing housing?: No In the past year have you or any family members you live with been unable to get any of the following when it was really needed? Check all that apply:: None Communication Needs Communication Needs Does the patient have a hearing impairment: No Does the patient have a vision impairmen t?: Yes If yes, what is the vision impairment?: Contact Lenses Does the patient have a cognition impair ment?: No Examination Category Sub-Category Detail Notes Category Not es General Examination GENERAL APPEARANCE: well dev eloped, well nourished, in no acute distress HEAD: normocephalic, atrau matic EYES: pupils equal, round, reactive to light and accommodation, sclera non-icteric EARS: normal THROAT: clear NECK/THYROID: neck supple, full ra nge of motion, no cervical lymphadenopathy, no bruits HEART: regular rate and rhy thm, S1, S2 normal, no murmurs LUNGS: clear to auscultatio n bilaterally ABDOMEN: soft, nontender, non distended, bowel sounds present, normal, no organomegaly , no masses palpable NEUROLOGIC: nonfocal, motor stre ngth normal upper and lower extremities, sensory exam intact SKIN: warm and dry, no yvon picious lesions EXTREMITIES: no clubbing, cyanosi s, or edema MALE GENITOURINARY: uncircumcised, teste s descended bilaterally, no testicular mass RECTAL EXAM: normal tone, no exte rnal hemorrhoids, no masses palpable, prostate normal, stool guaiac negative ORAL CAVITY: mucosa moist
--- OUTSIDE RECORDS SUMMARY | 2024-10-11 11:00 | XMS_ITS ---
Author Organization Librado Neri MD Address [address] [place] [phone] Care Team Providers Care Clerk Cashier Name Role Phone Librado Neri Primary Care Provider Allergies No Known Allergies Results Component Value Reference Range Notes Hemoglobin A1c Reviewed date:10/11/2024 03:12:23 PM Interpretation: Performing Lab: Notes/Report: Hemoglobin A1c 5.7 Glucose, finger stick Reviewed date:10/11/2024 03:09:57 PM Interpretation: Performing Lab: Notes/Report: Value 84 REASON FOR VISIT 3 mo f/u bp, Patient stopped Valsartan/ HCTZ in June Medications Medication SIG (Take, Route, Frequency, Duration) Notes Start Date End Date Status hydroCHLOROthiazide 25 MG 1 tablet in th e morning Orally Once a day for 90 days 07/02/2024 Active amLODIPine Besylate 10 MG TAKE 1 TABLET BY MOUTH EVERY DAY Active Valsartan-hydroCHLOROthiazid e 320-25 MG TAKE 1 TABLET BY MOUTH EVERY DAY FOR 30 DAYS Not-Taking Vital Signs Blood pressure systolic 164 mm Hg 10/11/19 25 Blood pressure diastolic 80 mm Hg 025 Height 71 in 10/11/2024 Weight 276 lbs 10/11/2024 BMI 38.49 kg/m2 10/11/2024 weight is up 20 pounds since 07-02-24 Encounters Encounter Location Date Provider Diagnosis Librado Neri MD [address] [place], [place] [phone] 10/11/2024 Librado Neri Type 2 diabetes mellitus without complications E11.9 and Essential hypertension I10 Assessments Encounter Date Diagnosis (ICD Code) Assessment Notes Treatment Notes Treatment Clinical Notes Section Notes 10/11/2024 Type 2 diabetes mellitus without complications (ICD-10 - E11.9) 10/11/2024 Essential hypertension (ICD-10 - I10) restart his valsartan and amlodipine and hctz Plan Of Treatment Treatment Notes Assessment Notes Essential hypertension restart his valsa rtan and amlodipine and hctz Next Appt Details Follow Up: 3 Months, Reason: Provider Name:Librado Arreola ier, 07/04/2025 11:00:00 AM, [address], [address], [place], [place], [phone], Progress Notes * Mason GRIMALDOy RDOB:1965 (59 yo M)Acc No.[id number]:10/11/2024 Progress Notes Patient: Lio Dixon Provider: Elpidio Neri MD :1965 A ge:59 Y S ex:Male Date:10/11/2024 Address: [address], [address], [facility] Subjective: * Chief Complaints: * 3 mo f/u bpPatient stopped Valsartan/ HCTZ in June * HPI: S ymptom(s): patient is a 59 yo male here for 3 month follow up of bp, stopped his Valsartan/Hctz in June. * ROS: G eneral/Constitutional: Denies C hills. D enies F atigue. D enies F ever. D enies H eadache. E NT: Patient denies d ecreased sense of smell , any loss of taste , sore throat. D enies S ore throat. E ndocrine: Denies D ifficulty sleeping. D enies D izziness.?Denies E xcessive sweating. D enies E xcessive thirst. D enies F requent urination. R espiratory: Denies C ough. D enies S hortness of breath at rest. D enies S hortness of breath with exertion. G astrointestinal: Denies D iarrhea. D enies N ausea. M usculoskeletal: Patient denies m uscle aches. P eripheral Vascular: Patient denies r ed and blue toes. * Medical History: * Surgical History: * Hospitalization/Major Diagno stic Procedure: * Medications: T akinghydroCHLOROthiazide 25 MG Tablet 1 tablet in the morning Orally Once a dayamLODIPine Besylate 10 MG Tablet TAKE 1 TABLET BY MOUTH EVERY DAY Taking hydroCHLOROthiazide 25 MG Tablet 1 tablet in the morning Orally Once a dayTaking amLODIPine Besylate 10 MG Tablet TAKE 1 TABLET BY MOUTH EVERY DAY Not-Taking/PRNValsartan-hydroCHLOROthiazide 320-25 MG Tablet TAKE 1 TABLET BY MOUTH EVERY DAY FOR 30 DAYS Medication List reviewed and reconciled with the patientNot-Taking/PRN Valsartan-hydroCHLOROthiazide 320-25 MG Tablet TAKE 1 TABLET BY MOUTH EVERY DAY FOR 30 DAYS Medication List reviewed and reconciled with the patient * Allergies: N .K.D.A.yes[Allergies Verified] Objective: * Vitals: H t: 71, Wt:276, BMI:38.49, BP:164/80, Repeat BP:155/75 weight is up 20 pounds since 07-02-24. * Examination: G eneral Examination: GENERAL APPEARANCE: p leasant, in no acute distress. HEAD: n ormocephalic. SKIN: g ood turgor. HEART: r egular rate and rhythm , no murmurs, rubs, gallops. LUNGS: n o wheezes, rales, rhonchi , good air movement , clear to auscultation bilaterally. Assessment: * Assessment: 1. E ssential hypertension - I10 (Primary) 2 . T ype 2 diabetes mellitus without complications - E11.9 Plan: * Treatment: 2. T ype 2 diabetes mellitus without complications L AB: Hemoglobin A1c Value Reference Range H emoglobin A1c 5.7 * Kendal Floyd 5 03:12:21 PM EST > ?LAB: Glucose, finger stick* Value Reference Range V alujimmy 84 * Kendal Floyd 03:09:55 PM EST > * Procedure Codes: 8 2947 ASSAY, GLUCOSE, BLOOD QUANT, Modifiers: QW 81250 GLYCATED HEMOGLOBIN TEST, Modifiers: QW * Follow Up: 3 Months * * Sign off status: Completed true * Provider: Elpidio Neri MD Date: 0 10/11/2024 Generated for Saad romeo/Brittny/Sheilasmitting on: 0 06/27/2025 11:28 AM EDT History and Physical Notes * HPI (History of Present Illness) Category Sub-Category Detail Notes Category Not es Symptom(s) patient is a 59 yo male here for 3 month follow up of bp, stopped his Valsartan/Hctz in June Examination Category Sub-Category Detail Notes Category Not es General Examination GENERAL APPEARANCE: pleasant, in n o acute distress HEAD: normocephalic HEART: regular rate and rhy thm , no murmurs, rubs, gallops LUNGS: no wheezes, rales, r honchi , good air movement , clear to auscultation bilaterally SKIN: good turgor
--- OUTSIDE RECORDS SUMMARY | 2024-10-22 06:30 | XMS_ITS ---
Author Organization [facility] Address [address] [place] [address] Care Team Providers Care Intelligence Specialist Name Role Phone Daron MARIEE, Librado Primary Care Provider DarlinevaLinda Arguelles Unavailable [phone] Encounters Encounter Location Date Provider Diagnosis [facility] [address] [place] [address] 10/22/2024 Linda Mc Plan Of Treatment No Information Progress Notes * Prosper GRIMADLOOB:1965 ( 60 yo M)Acc No.[id number]:10/22/2024 Progress Notes Patient: Lio VASQUEZ Provider: Myron Mc DPM :1965 A ge:59 Y S ex:Male Date:10/22/2024 Address:[id number] Pcp:Librado Neri MD Subjective: * Chief Complaints: * * Medical History: Objective: * Vitals: Assessment: Plan: * Treatment: * Images: * The named appointment provid er may or may not be the originator of this progress note, and it is not deemed complete until electronically signed by the appointment provider. Sign off status: Pending * Provider: Myron Mc DPM Date: 10/22/2024 Generated for Saad ng/Fajonog/eTransmitting on: 06/27/2025 11:29 AM EDT
--- OUTSIDE RECORDS SUMMARY | 2024-12-13 04:00 | XMS_ITS ---
Author Organization Librado Neri MD Address [address] [place] [phone] Care Team Providers Care Telegraph Service Clerk Name Role Phone Librado Neri Primary Care Provider [phone] Results Component Value Reference Range Notes PSA,Total (Free>4and<10) Reviewed date:12/13/2024 04:20:48 PM Interpretation: Performing Lab:[facility], [address] [place] [id number] Notes/Report: PSA,Total (Free>4and<10) 2.70 0.00-4.00 ng/mL A Free PSA was not [...] Robertson Alinity i Chemiluminescent Microparticle Immunoassay (CMIA) REASON FOR VISIT repeat PSA 6 mos, per provider Encounters Encounter Location Date Provider Diagnosis Librado Neri MD [address] [place], [place] [phone] 12/13/2024 Librado Neri Rising PSA level R97.20 Assessments Encounter Date Diagnosis (ICD Code) Assessment Notes Treatment Notes Treatment Clinical Notes Section Notes 12/13/2024 Rising PSA level (ICD-10 - R97.20) Plan Of Treatment Next Appt Details Provider Name:Librado Arreola ier, 07/04/2025 11:00:00 AM, [address], [address], [place], [place], [phone], Progress Notes * Lio GRIMALDO RDOB:1965 (60 yo M)Acc No.[id number]:12/13/2024 Progress Note Patient: Lio VASQUEZ Provider: Elpidio Neri MD :1965 A ge:59 Y S ex:Male Date:12/13/2024 Address:[address] [place] [address] , [address] Subjective: * Chief Complaints: * 1 . repeat PSA 6 mos, per provider. * Medical History: Objective: * Vitals: Assessment: * Assessment: 1. R ising PSA level - R97.20 (Primary) Plan: * Treatment: * Procedure Codes: 3 6415 VENIPUNCT, ROUTINE* * * The named appointment provid er may or may not be the originator of this progress note, and it is not deemed complete until electronically signed by the appointment provider. Sign off status: Pending * Provider: Elpidio Neri MD Date: 0 12/13/2024 Generated for Saad romeo/Brittny/eTransmitting on: 0 06/27/2025 11:29 AM EDT
--- OUTSIDE RECORDS SUMMARY | 2025-06-27 04:00 | XMS_ITS ---
Author Organization Librado Neri MD Address [address] [place], [place] [phone] Care Team Providers Care Law Secretary Name Role Phone Librado Neri Primary Care Provider [phone] Results Component Value Reference Range Notes Complete Blood Count Auto Di ff (Not yet reviewed by provider) Interpretation: Performing Lab:[facility], [address] [place] [phone] Notes/Report: White Blood Count 6.3 4.8-10.8 X10*3/uL Red Blood Count 5.00 4.60-5.80 X10*6/uL Hemoglobin 14.4 14.0-18.0 g/dl Hematocrit 42.6 42.0-52.0 % Mean Corpuscular Volume 85.2 80.0-98.0 fL Mean Corpuscular Hemoglobin 28.8 27.0-33.0 pg Mean Corpuscular HGB Conc 33.8 31.0-36.0 g/dl Red Cell Distribution Width 14.0 11.0-16.0 % Platelet Count 246 160-400 X10*3/uL Mean Platelet Volume 10.2 9.4-12.4 fL Neutrophils Percent Auto 34.0 45-73 % Imm Gran Pct Auto 0.2 0.0-0.4 % Lymphocytes Percent Auto 56.4 20-40 % Monocytes Percent Auto 7.6 2-11 % Eosinophils Percent Auto 1.0 0-4 % Basophils Percent Auto 0.8 0-2 % NRBC Pct Auto 0.0 0.0-0.2 /100WBC Neutrophils Absolute Auto 2.1 2.0-8.3 x10*3/u L Imm Gran Abs Auto 0.01 0.00-0.03 X10*3/uL Lymphocytes Absolute Auto 3.6 1.2-4.9 X10*3/u L Monocytes Absolute Auto 0.5 0.1-1.2 X10*3/uL Eosinophils Absolute Auto 0.1 0.0-0.4 X10*3/u L Basophils Absolute Auto 0.1 0.0-0.2 X10*3/uL NRBC Abs Auto 0.000 0.0-0.012 X10*3/uL Comprehensive Ferney. Panel Fa st (Not yet reviewed by provider) Interpretation: Performing Lab:[address] [phone] Notes/Report: Sodium 147 135-145 mmol/L Potassium 3.4 3.3-5.1 mmol/L Chloride 108 96-108 mmol/L Carbon Dioxide 31 22-29 mmol/L Anion Gap 11 12-20 Blood Urea Nitrogen 14 9-16 mg/dL Creatinine 1.19 0.5-1.4 mg/dL Estimated Glomerular Filt Rate > 60 Chronic Kidney Disease: Estimated GFR < 60 mL/min/1.73m2 Severe Kidney Disease: Estimated GFR < 15 mL/min/1.73m2 Glucose Fasting 123 60-99 mg/dL A fasting glucose from 100-125 mg/dl is considered impaired (pre-diabetes). Calcium 9.5 8.4-10.2 mg/dL Bilirubin Total 0.4 0.0-1.0 mg/dL Aspartate Amino Transferase 27 5-37 U/L Alanine Aminotransferase 46 0-40 U/L Total Protein 7.5 6.5-8.0 g/dL Albumin Level 4.3 3.5-5.0 g/dL Alkaline Phosphatase 77 39-117 U/L Lipid Panel (Not yet reviewe d by provider) Interpretation: Performing Lab:[address] [phone] Notes/Report: Triglycerides 119 <150 mg/dL Desirable Triglyceride: less than 150 mg/dL Borderline High Triglyceride 150-199 mg/dL High Triglyceride: 200-499 mg/dL Very High Triglyceride: greater than or equal to 5OO mg/dL Cholesterol 154 <200 mg/dL Desirable Cholesterol: less than 200 mg/dL Borderline High Cholesterol: 200-239 mg/dL High Cholesterol: greater than 239 mg/dL LDL Cholesterol Calculated 82 <100 mg/dL Desirable LDL: less than 100 mg/dL Near Optimal/Above Optimal LDL: 110-129 mg/dL Borderline High LDL: 130-159 mg/dL High LDL: 160-189 mg/dL Very High LDL: greater than or equal to 190 mg/dL HDL Cholesterol 49 >40 mg/dL Desirable HDL: greater than 40 mg/dL Note: This HDL assay may give artificially low results in patients with liver disease. Microalbumin, Random (Not ye t reviewed by provider) Interpretation: Performing Lab:[address] [address] Notes/Report: Creatinine Urine 240.93 Microalbumin Urine 6.0 Microalbum/Creatinine Ratio Ur 2.4 <30 ug/mg cr Albumin/Creatinine Ratio Reference Ranges: Normal: < 30 ug/mg creatinine Microalbuminuria: 30 - 300 ug/mg creatinine Clinical Albuminuria: > 300 ug/mg creatinine Hemoglobin A1c (Not yet revi ewed by provider) Interpretation: Performing Lab:[address] [phone] Notes/Report: Hemoglobin A1c % 6.1 <6.0 % Hemoglobin A1C Reference Range Adults: 4.8 - 6.0 % Non diabetic: < 6.0 % Goal: < 7.0 % Additional Action Suggested: > 8.0 % Note: Hemoglobin A1c results are invalid for patients with abnormal amounts of HbF. Blood transfusions may impact the HbA1c concentration in the patient sample. Estimated Average Glucose 128 eAG = Estimated average glucose which is %A1C expressed as average glucose, using the formula of the J7I-Okrzhol Average Glucose study (ADAG), Diabetes Care, Vol.31,#8, 2007 UA ClnCatch+Micro w/rflx Cul t (Not yet reviewed by provider) Interpretation: Performing Lab:[address] [phone] Notes/Report: Urine, Clean Catch Color Urine Yellow Appearance Urine Clear PH 5.5 5.0-9.0 Glucose Urine UA Negative Negative mg/dL Urine Blood Negative Negative Specific [place] - Urine 1.020 1.005-1.025 Urine Protein Negative Neg-Trace mg/dL Urine Ketones Negative Negative mg/dL Nitrite Urine Negative Negative Leukocyte Esterase Urine Trace Negative RBC Urine 0-2 0-2 /HPF WBC Urine 0-5 0-5 /HPF Squamous Epithelial Cell Urine 0-2 0-2 /HPF Bacteria Urine None Seen None Seen Hyaline Casts Urine 0-2 0-2 /LPF REASON FOR VISIT FASTING LABS Encounters Encounter Location Date Provider Diagnosis Librado Neri MD [address] [place] [address] [place] [phone] 06/27/2025 Librado Neri Blood tests for routine general physical examination Z00.00 ; Essential hypertension I10 ; Type 2 diabetes mellitus without complications E11.9 and Lymphocytosis D72.820 Assessments Encounter Date Diagnosis (ICD Code) Assessment Notes Treatment Notes Treatment Clinical Notes Section Notes 06/27/2025 Blood tests for routine general physical examination (ICD-10 - Z00.00) 06/27/2025 Essential hypertension (ICD-10 - I10) 06/27/2025 Type 2 diabetes mellitus without complications (ICD-10 - E11.9) 06/27/2025 Lymphocytosis (ICD-10 - D72.820) Plan Of Treatment Pending Test Test Name Order Date Complete Blood Count Auto Diff Comprehensive Ferney. Panel Fast Lipid Panel 06/27/2025 PSA,Total (Free>4and<10) 06/27/2025 Microalbumin, Random 06/27/2025 Hemoglobin A1c 06/27/2025 UA ClnCatch+Micro w/rflx Cult 06/27/2025 Next Appt Details Provider Name:Librado bautista, 07/04/2025 11:00:00 AM, [address] [place] [address] Drive, Suite [facility], [place], [place], [phone], Progress Notes * Lio GRIMALDO RDOB:1965 (60 yo M)Acc No.[id number]:06/27/2025 Progress Note Patient: Harry MIKEY, Lio R Provider: Elpidio Neri MD :1965 A ge:60 Y S ex:Male Date:06/27/2025 Address: [address], [id number] Subjective: * Chief Complaints: * 1 . FASTING LABS. * Medical History: Objective: * Vitals: Assessment: * Assessment: 1. B lood tests for routine general physical examination - Z00.00 (Primary) 2 .?Essential hypertension - I10 3 . T ype 2 diabetes mellitus without complications - E11.9 4 . L ymphocytosis - D72.820 Plan: * Treatment: 2. E ssential hypertension L AB: Complete Blood Count Auto Diff (Collection Date & Time - 06/27/2025 08:00 AM) L AB: Comprehensive Ferney. Panel Fast (Collection Date & Time - 06/27/2025 08:00 AM) L AB: Lipid Panel (Collection Date & Time - 06/27/2025 08:00 AM) L AB: PSA,Total (Free>4and<10) L AB: Microalbumin, Random (Collection Date & Time - 06/27/2025 08:00 AM) L AB: Hemoglobin A1c (Collection Date & Time - 06/27/2025 08:00 AM) L AB: UA ClnCatch+Micro w/rflx Cult (Collection Date & Time - 06/27/2025 08:00 AM) 3. T ype 2 diabetes mellitus without complications L AB: Complete Blood Count Auto Diff (Collection Date & Time - 06/27/2025 08:00 AM) L AB: Comprehensive Ferney. Panel Fast (Collection Date & Time - 06/27/2025 08:00 AM) L AB: Lipid Panel (Collection Date & Time - 06/27/2025 08:00 AM) L AB: PSA,Total (Free>4and<10) L AB: Microalbumin, Random (Collection Date & Time - 06/27/2025 08:00 AM) L AB: Hemoglobin A1c (Collection Date & Time - 06/27/2025 08:00 AM) L AB: UA ClnCatch+Micro w/rflx Cult (Collection Date & Time - 06/27/2025 08:00 AM) 4. L ymphocytosis L AB: Complete Blood Count Auto Diff (Collection Date & Time - 06/27/2025 08:00 AM) L AB: Comprehensive Ferney. Panel Fast (Collection Date & Time - 06/27/2025 08:00 AM) L AB: Lipid Panel (Collection Date & Time - 06/27/2025 08:00 AM) L AB: PSA,Total (Free>4and<10) L AB: Microalbumin, Random (Collection Date & Time - 06/27/2025 08:00 AM) L AB: Hemoglobin A1c (Collection Date & Time - 06/27/2025 08:00 AM) L AB: UA ClnCatch+Micro w/rflx Cult (Collection Date & Time - 06/27/2025 08:00 AM) * Procedure Codes: 3 6415 VENIPUNCT, ROUTINE* * * The named appointment provid er may or may not be the originator of this progress note, and it is not deemed complete until electronically signed by the appointment provider. Sign off status: Pending * Provider: Elpidio Neri MD Date: 0 06/27/2025 Generated for Saad romeo/Brittny/Jaditting on: 06/27/2025 11:28 AM EDT
[2025-06-27 10:24] LABS: MANUAL DIFF FLAG NO
[2025-06-27 10:29] LABS: Hematocrit 42.6 % (42.0-52.0); Hemoglobin 14.4 g/dl (14.0-18.0); Imm Gran Abs Auto 0.01 X10*3/uL (0.00-0.03); Imm Gran Pct Auto 0.2 % (0.0-0.4); Lymphocytes Absolute Auto 3.6 X10*3/uL (1.2-4.9); Mean Corpuscular HGB Conc 33.8 g/dl (31.0-36.0); Mean Corpuscular Hemoglobin 28.8 pg (27.0-33.0); Mean Corpuscular Volume 85.2 fL (80.0-98.0); NRBC Abs Auto 0.000 X10*3/uL (0.0-0.012); NRBC Pct Auto 0.0 /100WBC (0.0-0.2); Platelet Count 246 X10*3/uL (160-400); Red Blood Count 5.00 X10*6/uL (4.60-5.80); White Blood Count 6.3 X10*3/uL (4.8-10.8)
[2025-06-27 10:33] LABS: Appearance Urine Clear; Glucose Urine UA Negative (Negative); PH 5.5 (5.0-9.0); Specific Gravity - Urine 1.020 (1.005-1.025); UMIC TRIGGER UACC YES
[2025-06-27 10:39] LABS: Total Hemoglobin (HGBA1C) 3691.3175 umol/L
[2025-06-27 11:05] LABS: Microalbum/Creatinine Ratio Ur 2.4 ug/mg cr (<30)
[2025-06-27 11:17] LABS: Alanine Aminotransferase 46 U/L (0-40); Albumin Level 4.3 g/dL (3.5-5.0); Alkaline Phosphatase 77 U/L (39-117); Anion Gap 11 (12-20); Aspartate Amino Transferase 27 U/L (5-37); Blood Urea Nitrogen 14 mg/dL (9-16); Calcium 9.5 mg/dL (8.4-10.2); Carbon Dioxide 31 mmol/L (22-29); Chloride 108 mmol/L (96-108); Cholesterol 154 mg/dL (<200); Estimated Glomerular Filt Rate > 60; HDL Cholesterol 49 mg/dL (>40); Potassium 3.4 mmol/L (3.3-5.1); Sodium 147 mmol/L (135-145); Total Protein 7.5 g/dL (6.5-8.0); Triglycerides 119 mg/dL (<150)
--- OUTSIDE RECORDS SUMMARY | 2025-06-27 11:28 | XMS_ITS | Clinical Summary ---
Author Organization [facility] Address [address] [place] [address] Care Team Providers Care Pressure Control Supervisor Name Role Phone Unavailable Primary Care Provider Unavailabl e Social History Tobacco Use Types Packs/Day Years Used Date Smoking Tobacco: Never Assessed Sex and Gender Information Value Date Recorded Sex Assigned at Not on file Gender Identity Not on file Sexual Orientation Not on file Plan of Treatment Not on file
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
--- OUTSIDE RECORDS SUMMARY | 2025-06-27 11:29 | XMS_ITS | Patient Health Record ---
Author Organization [facility] Address [address] [place] [address] Care Team Providers Care Electrocardiograph Repairer Name Role Phone Librado Neri MD Primary Care Provider Linda Krishna Unavailable [phone] Reason For Referral No Information Encounters Encounter Location Date Provider Diagnosis [facility] [address] [place] [address] 07/02/2024 Linda Mc [address] [address] 10/15/2024 Linda Mc Plan Of Treatment No Information Insurance Providers Payer Name Payer Address Payer Phone Subscriber Number Group Number Insured Name Patient Relationship to Insured Coverage Start Date Coverage End Date [facility] [address] [place] [address] [phone] [id number] Lio Grimaldo Self - patient is the insured
--- OUTSIDE RECORDS SUMMARY | 2025-06-27 11:29 | XMS_ITS | Patient Health Record ---
Author Organization Librado Neri MD Address [address] [place], [place] [id number] Care Team Providers Care Derrick Boat Runner Name Role Phone Librado Neri Primary Care Provider Allergies No Known Allergies Results Component Value Reference Range Notes Hemoglobin A1c Reviewed date:10/11/2024 03:12:23 PM Interpretation: Performing Lab: Notes/Report: Hemoglobin A1c 5.7 PSA,Total (Free>4and<10) Reviewed date:12/13/2024 04:20:48 PM Interpretation: Performing Lab:[facility], [address] [place] [phone] Notes/Report: PSA,Total (Free>4and<10) 2.70 0.00-4.00 ng/mL A [...] Robertson Alinity i Chemiluminescent Microparticle Immunoassay (CMIA) Complete Blood Count Auto Di ff (Not yet reviewed by provider) Interpretation: Performing Lab:[facility], [address] [place] [phone] Notes/Report: White Blood Count 6.3 4.8-10.8 X10*3/uL [...] NRBC Abs Auto 0.000 0.0-0.012 X10*3/uL Comprehensive [place]. Panel Fa st (Not yet reviewed by provider) Interpretation: Performing Lab:[facility], [address] [place] [address] Notes/Report: Sodium 147 135-145 mmol/L Potassium 3.4 [...] yet reviewe d by provider) Interpretation: Performing Lab:[address] [phone] Notes/Report: Triglycerides 119 <150 mg/dL Desirable Triglyceride: [...] ye t reviewed by provider) Interpretation: Performing Lab:[address] [phone] Notes/Report: Creatinine Urine 240.93 Microalbumin Urine 6.0 Microalbum/Creatinine Ratio Ur 2.4 <30 ug/mg cr Albumin/Creatinine Ratio Reference Ranges: Normal: < 30 ug/mg creatinine Microalbuminuria: 30 - 300 ug/mg creatinine Clinical Albuminuria: > 300 ug/mg creatinine Hemoglobin A1c (Not yet revi ewed by provider) Interpretation: Performing Lab:[address] [phone] Notes/Report: Hemoglobin A1c % 6.1 <6.0 % [...] average glucose, using the formula of the H0E-Lsmursr Average Glucose study (ADAG), Diabetes Care, Vol.31,#8, Apr. 2007 UA ClnCatch+Micro w/rflx Cul t (Not yet reviewed by provider) Interpretation: Performing Lab:[address] [phone] Notes/Report: Urine, Clean Catch Color Urine Yellow Appearance Urine Clear PH 5.5 5.0-9.0 Glucose Urine UA Negative Negative mg/dL Urine Blood Negative Negative Specific Ang[place] In[place] - Urine 1.020 1.005-1.025 Urine Protein Negative Neg-Trace mg/dL Urine Ketones Negative Negative mg/dL Nitrite Urine Negative Negative Leukocyte Esterase Urine Trace Negative RBC Urine 0-2 0-2 /HPF WBC Urine 0-5 0-5 /HPF Squamous Epithelial Cell Urine 0-2 0-2 /HPF Bacteria Urine None Seen None Seen Hyaline Casts Urine 0-2 0-2 /LPF Glucose, finger stick Reviewed date:10/11/2024 03:09:57 PM Interpretation: Performing Lab: Notes/Report: Value 84 Hold Green Gel Reviewed date:12/13/2024 04:20:17 PM Interpretation: Performing Lab:[address] [phone] Notes/Report: Hold Green Gel See Note Specimen held untested for 24 hours; Call to request Chemistry testing. Reason For Referral No Information Medications Medication SIG (Take, Route, Frequency, Duration) Notes Start Date End Date Status amLODIPine Besylate 10 MG TAKE 1 TABLET BY MOUTH EVERY DAY for 90 Active hydroCHLOROthiazide 25 MG 1 tablet in th e morning Orally Once a day for 90 days 07/02/2024 Active Valsartan-hydroCHLOROthiazid e 320-25 MG TAKE 1 TABLET BY MOUTH EVERY DAY FOR 30 DAYS for 90 Active Immunizations Vaccine Route Administration Date Status Comme nts Flu Vaccine IM Intramuscular 07/12/2011 Administered Flu Vaccine IM Intramuscular 07/02/2013 Administered Flu Vaccine IM Intramuscular 08/12/2014 Administered PPSV23 (Pnemovax) IM Intramuscular 02/17/2015 Administered zFluzone Quadrivalent IM Intramuscular 08/18/2015 Administ ered Fluarix Quadrivalent IM Intramuscular 06/28/2016 Administe red Fluarix Quadrivalent IM Intramuscular 09/08/2017 Administe red Fluarix Quadrivalent Unknown 07/19/2018 Administered CV S TDaP Unknown 07/19/2018 Administered [facility] Tetanus Unknown 07/19/2018 Administered PPSV23 (Pnemovax) IM Intramuscular 05/15/2020 Administered Fluarix Quadrivalent IM Intramuscular 06/30/2020 Administe red SARS-COV-2 Moderna Unknown 02/25/2021 Administered SARS-COV-2 Moderna Unknown 03/25/2021 Administered Fluarix Quadrivalent IM Intramuscular 08/27/2021 Administe red SARS-COV-2 Moderna Unknown 09/28/2021 Administered [facility] Fluarix Quadrivalent IM Intramuscular 06/09/2023 Administe red Fluarix Quadrivalent - 150 IM Intramuscular 06/07/2024 Adm inistered Social History Tobacco Use: Social History Observation [...] 12 beers Patient no longer binge drinks Patient calls himself a dipti e drinker, when he does drink he has 30 beers Patient calls himself a dipti e drinker, when he does drink he has 30 beers Patient calls himself a dipti e drinker, when he does drink he has 30 beers Patient no longer binge drinks Patient calls himself a dipit e drinker, when he does drink he has 30 beers Patient no longer binge drinks Patient calls himself a dipti e drinker, when he does drink he has 30 beers Patient no longer binge drinks Patient calls himself a dipti e drinker, when he does drink he has 30 beers Patient no longer binge drinks Patient calls himself a dipti e drinker, when he does drink he has 12 beers Patient no longer binge drinks Patient calls himself a dipti e drinker, when he does drink he has 12 beers Patient no longer binge drinks Problems Problem Type SNOMED Code ICD Code Onset Dates Problem Status W/U Status Risk Notes Problem 17153501 Type 2 diabetes mellitus without complications (E11.9) Active confirmed Problem 553485138 Thyroid nodule (E04.1) Active confirmed Problem 34175091 Lymphocytosis (D72.820) Active confirmed Problem 603271266 Body mass index (BMI) 37.0-37.9, adult (Z68.37) Active confirmed Problem 43329010 Essential hypertension (I10) Active confirmed Problem 495612738 History of hematuria (Z87.448) Active confirmed Problem 984051977 Right thyroid nodule (E04.1) Active confirmed Problem 926069926 BMI 36.0-36.9,adult (Z68.36) Active confirmed Vital Signs Blood pressure diastolic 80 mm Hg 10/11/2024 graciela ght is up 20 pounds since 07-02-24 Height 71 in 10/11/2024 weight is up 20 pounds since 07-02-24 Blood pressure systolic 164 mm Hg 10/11/2024 weig ht is up 20 pounds since 07-02-24 Weight 276 lbs 10/11/2024 weight is up 20 pounds since 07-02-24 BMI 38.49 kg/m2 10/11/2024 weight is up 20 pounds since 07-02-24 Encounters Encounter Location Date Provider Diagnosis Librado Neri MD [address] [place] [id number] 12/13/2024 Librado Neri Rising PSA level R97.20 Librado Neri MD [address] [place] [address] [id number] 06/27/2025 Librado Neri Blood tests for routine general physical examination Z00.00 ; Essential hypertension I10 ; Type 2 diabetes mellitus without complications E11.9 and Lymphocytosis D72.820 Librado Neri MD [address] [place] [address] [id number] 07/02/2024 Librado Neri Right foot pain M79.671 ; Annual physical exam Z00.00 ; Essential hypertension I10 ; Type 2 diabetes mellitus without complications E11.9 ; Lymphocytosis D72.820 ; Depression screening Z13.31 and Colon cancer screening Z12.11 Librado Neri MD [address] [place] [address] [id number] 10/11/2024 Librado Neri Type 2 diabetes mellitus without complications E11.9 and Essential hypertension I10 Assessments Encounter Date Diagnosis (ICD Code) Assessment Notes Treatment Notes Treatment Clinical Notes Section Notes 12/13/2024 Rising PSA level (ICD-10 - R97.20) 06/27/2025 Blood tests for routine general physical examination (ICD-10 - Z00.00) 07/02/2024 Right foot pain (ICD-10 - M79.671) refer to dr levine 07/02/2024 Annual physical exam (ICD-10 - Z00.00) labs reviewed and discussed with patient 10/11/2024 Type 2 diabetes mellitus without complications (ICD-10 - E11.9) 10/11/2024 Essential hypertension (ICD-10 - I10) restart his valsartan and amlodipine and hctz 06/27/2025 Essential hypertension (ICD-10 - I10) 07/02/2024 Essential hypertension (ICD-10 - I10) patient verbalized understanding of medication and directions for use 06/27/2025 Type 2 diabetes mellitus without complications (ICD-10 - E11.9) 07/02/2024 Type 2 diabetes mellitus without complications (ICD-10 - E11.9) stable, no need for medication at this time 06/27/2025 Lymphocytosis (ICD-10 - D72.820) 07/02/2024 Lymphocytosis (ICD-10 - D72.820) will continue to monitor 07/02/2024 Depression screening (ICD-10 - Z13.31) negative screen 07/02/2024 Colon cancer screening (ICD-10 - Z12.11) negative guaiac Plan Of Treatment Pending Test Test Name Order Date Electrocardiogram (EKG) 03/01/2016 Electrocardiogram (EKG) 03/14/2017 Electrocardiogram (EKG) 04/03/2018 US THYROID 05/21/2021 Complete Blood Count Auto Diff Comprehensive [place]. Panel Fast 5 Lipid Panel 06/27/2025 PSA,Total (Free>4and<10) 06/27/2025 Microalbumin, Random 06/27/2025 Hemoglobin A1c 06/27/2025 UA ClnCatch+Micro w/rflx Cult 06/27/2025 Next Appt Details Provider Name:Librado Arreola ier, 07/04/2025 11:00:00 AM, [address] [facility], [address], [place], [place], [id number], Insurance Providers Payer Name Payer Address Payer Phone Subscriber Number Group Number Insured Name Patient Relationship to Insured Coverage Start Date Coverage End Date [address] [place] [phone] [id number] Lio Grimaldo Self - patient is the insured Medical (General) History Medical History History ICD Code thyroid nodule 2013. evaluat [facility] with biopsy. needs repeat us of thyroid Lymphocytosis (symptomatic) colonoscopy w/Dr. Mrai for 12/20/16 - repeat 10 years
[2025-06-27 11:31] LABS: PSA,Total (Free>4and<10) 2.61 ng/mL (0.00-4.00)
== END 2025-06-27 08:01 | disposition home or self-care (01) ==
LOC: HO.LNP 08:00
PROVIDERS: Visit Provider Internal Medicine
DX: Z00.00 Encounter for general adult medical examination without abnormal findings (principal); E11.9 Type 2 diabetes mellitus without complications; I10 Essential (primary) hypertension; D72.820 Lymphocytosis (symptomatic); Z12.5 Encounter for screening for malignant neoplasm of prostate
CPT/HCPCS: 80053; 80061; 81001; 82043; 82570; 83036; 84153; 85025